=== PATIENT | male | born 1990 | race Caucasian/White ===

== ENCOUNTER 2020-04-13 15:00 | Outpatient (REF) | payer OTHER, SELFPAY | END 2020-04-13 15:01 | disposition home or self-care (01) | LOC: HO.LNP 15:00 | PROVIDERS: Visit Provider Internal Medicine | DX: Z20.828 Contact with and (suspected) exposure to other viral communicable diseases (principal); J02.9 Acute pharyngitis, unspecified | CPT/HCPCS: U0003 ==

== ENCOUNTER 2021-07-07 07:35 | Outpatient (REF) | payer BC, SELFPAY ==
[2021-07-07 07:49] LABS: MANUAL DIFF FLAG NO
[2021-07-07 08:12] LABS: Basophils Percent Auto 0.4 % (0-2); Eosinophils Absolute Auto 0.2 X10*3/uL (0.0-0.4); Eosinophils Percent Auto 1.6 % (0-4); Hematocrit 44.4 % (42.0-52.0); Hemoglobin 13.6 g/dl (14.0-18.0); Imm Gran Abs Auto 0.06 X10*3/uL (0.00-0.03); Imm Gran Pct Auto 0.6 % (0.0-0.4); Lymphocytes Absolute Auto 2.5 X10*3/uL (1.2-4.9); Lymphocytes Percent Auto 24.4 % (20-40); Mean Corpuscular HGB Conc 30.6 g/dl (31.0-36.0); Mean Corpuscular Hemoglobin 22.1 pg (27.0-33.0); Mean Corpuscular Volume 72.1 fL (80.0-98.0); Mean Platelet Volume 10.5 fL (9.4-12.4); Monocytes Absolute Auto 0.8 X10*3/uL (0.1-1.2); Monocytes Percent Auto 7.4 % (2-11); Neutrophils Absolute Auto 6.7 x10*3/uL (2.0-8.3); Neutrophils Percent Auto 65.6 % (45-73); Platelet Count 239 X10*3/uL (160-400); Red Blood Count 6.16 X10*6/uL (4.60-5.80); White Blood Count 10.1 X10*3/uL (4.8-10.8)
[2021-07-07 08:32] LABS: Alanine Aminotransferase 24 U/L (0-40); Albumin Level 4.3 g/dL (3.5-5.0); Alkaline Phosphatase 77 U/L (39-117); Anion Gap 10 (12-20); Aspartate Amino Transferase 18 U/L (5-37); Bilirubin Total 0.5 mg/dL (0.0-1.0); Blood Urea Nitrogen 17 mg/dL (9-16); Calcium 9.3 mg/dL (8.4-10.2); Carbon Dioxide 28 mmol/L (22-29); Chloride 108 mmol/L (96-108); Cholesterol 157 mg/dL; Estimated Glomerular Filt Rate > 60; Glucose Random 108 mg/dL (60-115); HDL Cholesterol 38 mg/dL; LDL Cholesterol Calculated 105 mg/dl; Potassium 4.2 mmol/L (3.3-5.1); Sodium 142 mmol/L (135-145); Total Protein 7.2 g/dL (6.5-8.0); Triglycerides 71 mg/dL
== END 2021-07-07 07:36 | disposition home or self-care (01) ==
LOC: HO.LAB 07:35
PROVIDERS: PCP Internal Medicine; Visit Provider Internal Medicine
DX: Z00.00 Encounter for general adult medical examination without abnormal findings (principal); Z13.220 Encounter for screening for lipoid disorders
CPT/HCPCS: 36415; 80053; 80061; 85025

== ENCOUNTER 2023-03-02 08:46 | Outpatient (AMB) | payer BC, SELFPAY ==
--- NOTE | 2023-03-02 10:43 | MHC.OFFWIV ---
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 Reports he had some sort of viral illness about 3 weeks ago, and has since recovered from most of the symptoms, however has persistent cough, sometimes dry, sometimes productive with yellow sputum. Denies shortness of breath, fever, chills. Denies history of asthma. [facility] Social History Patient Tobacco Use Status: Never used Tobacco Review of Systems Const All systems reviewed & are unremarkable except as noted in HPI and below Physical Exam Vital Signs: Last Vital Signs Temp 97.9 F 03/02/23 10:44 Pulse 78 03/02/23 10:44 BP 122/78 03/02/23 10:44 Pulse Ox 98 03/02/23 10:44 BMI result Body Mass Index 45.2 Const General: cooperative, healthy appearing, comfortable and no acute distress HEENT Head: Yes normal to inspection Mouth: Normal oral and palatal mucosa present and moist mucous membranes Throat: Yes posterior oropharynx normal Neck Neck: Yes no lymphadenopathy Resp Effort & Inspection: normal respiratory effort, able to speak in complete sentences and Actively coughing (Reports productive at times) Quality: dry Auscultation: clear to auscultation bilaterally Cardio Jugular venous distension: no JVD Palpation: normal PMI Rate: regular rate Rhythm: regular rhythm Skin General skin exam: no rashes or lesions noted Extrem General: Yes capillary refill normal and Yes no clubbing, cyanosis or edema Psych Appearance: grossly normal Mental Status: mental status grossly normal Speech and movement: Normal speech and movement present Assessment & Plan Assessment & Plan (1) Acute bronchitis: Code(s): J20.9 - Acute bronchitis, unspecified Qualifiers: Bronchitis organism: unspecified organism Qualified Code(s): J20.9 - Acute bronchitis, unspecified Plan: Persistent cough x3 weeks, with productive yellow sputum. Has since recovered from all other sick symptoms which started 3 weeks ago. Will start on azithromycin and a short course of prednisone. We reviewed indications, use, possible side effects of medications. If he does not improve with treatment, he should return to the clinic for further evaluation. He verbalizes understanding and agrees to plan. Medications: New prednisone 20 mg PO BID 3 days 6 tabs 0RF J20.9 - Acute bronchitis, unspecified azithromycin For 250 mg dose pack: take 500 mg today (day 1), then 250 mg for 4 days (days 2-5) PO 6 tabs 0RF J20.9 - Acute bronchitis, unspecified Coding Level of Care Code Est Pt Level 3 (25611) Diagnoses Acute bronchitis, unspecified organism J20.9 Bronchitis organism: unspecified organism
[2023-03-02 10:44] VITALS: BP 122/78; PULSE 78; TEMP 36.6; O2SAT 98; BMI 45.2
== END 2023-03-02 11:10 | disposition home or self-care (01) ==
PROVIDERS: PCP Internal Medicine; Visit Provider Nurse Practitioner Family
DX: J20.9 Acute bronchitis, unspecified (principal)
CPT/HCPCS: 99213

== ENCOUNTER 2023-03-10 10:25 | Outpatient (REF) | payer BC, SELFPAY ==
[2023-03-10 13:07] LABS: MANUAL DIFF FLAG NO
[2023-03-10 13:20] LABS: Basophils Absolute Auto 0.1 X10*3/uL (0.0-0.2); Basophils Percent Auto 0.4 % (0-2); Eosinophils Absolute Auto 0.2 X10*3/uL (0.0-0.4); Eosinophils Percent Auto 2.1 % (0-4); Hemoglobin 12.9 g/dl (14.0-18.0); Imm Gran Abs Auto 0.06 X10*3/uL (0.00-0.03); Imm Gran Pct Auto 0.5 % (0.0-0.4); Lymphocytes Absolute Auto 2.4 X10*3/uL (1.2-4.9); Lymphocytes Percent Auto 21.1 % (20-40); Mean Corpuscular HGB Conc 30.7 g/dl (31.0-36.0); Mean Corpuscular Hemoglobin 21.9 pg (27.0-33.0); Mean Corpuscular Volume 71.4 fL (80.0-98.0); Mean Platelet Volume 10.3 fL (9.4-12.4); Monocytes Absolute Auto 0.7 X10*3/uL (0.1-1.2); Monocytes Percent Auto 6.5 % (2-11); Neutrophils Absolute Auto 7.7 x10*3/uL (2.0-8.3); Neutrophils Percent Auto 69.4 % (45-73); Platelet Count 245 X10*3/uL (160-400); Red Blood Count 5.88 X10*6/uL (4.60-5.80); Red Cell Distribution Width 15.2 % (11.0-16.0); White Blood Count 11.2 X10*3/uL (4.8-10.8)
[2023-03-10 15:22] LABS: Alanine Aminotransferase 25 U/L (0-40); Albumin Level 4.1 g/dL (3.5-5.0); Alkaline Phosphatase 78 U/L (39-117); Anion Gap 11 (12-20); Aspartate Amino Transferase 20 U/L (5-37); Bilirubin Total 0.4 mg/dL (0.0-1.0); Blood Urea Nitrogen 13 mg/dL (9-16); Calcium 9.4 mg/dL (8.4-10.2); Carbon Dioxide 25 mmol/L (22-29); Chloride 108 mmol/L (96-108); Cholesterol 136 mg/dL (<200); Estimated Glomerular Filt Rate > 60; Glucose Random 108 mg/dL (60-115); Potassium 4.2 mmol/L (3.3-5.1); Sodium 140 mmol/L (135-145); Total Protein 7.3 g/dL (6.5-8.0)
== END 2023-03-10 10:26 | disposition home or self-care (01) ==
LOC: HO.10HDL 10:25
PROVIDERS: Visit Provider Internal Medicine
DX: Z00.00 Encounter for general adult medical examination without abnormal findings (principal); K21.9 Gastro-esophageal reflux disease without esophagitis; J30.1 Allergic rhinitis due to pollen; E66.01 Morbid (severe) obesity due to excess calories; Z20.2 Contact with and (suspected) exposure to infections with a predominantly sexual mode of transmission
CPT/HCPCS: 36415; 80053; 82465; 85025

== ENCOUNTER 2024-09-26 10:03 | Outpatient (AMB) | payer BC, SELFPAY ==
--- NOTE | 2024-09-26 10:08 | A.OFFPC_ITS ---
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 Allergies Seasonal Allergies Allergy (Verified 09/26/24 10:11) Watery eyes, runny nose Tobacco use date assessed: 09/26/24 Dental Screening Dental Screen Date: 09/26/24 Did you have a dental visit in the last 12 months?: Yes Did you have a dental problem in the last 6 months where you did not have access to dental care?: No Was dental information given to patient?: Patient has dentist HPI HPI Comments History of Present Illness Details This is a 34-year-old male with no significant past medical history presenting for a physical exam. This is his initial visit. He transferred from Dr. Garcia. Patient endorses years of lower back/SI joint problems. Around age 17 he was injured while playing basketball. Since that time once or twice per year he has an exacerbation of pain. He treats symptoms with ibuprofen, and he had an urgent care evaluation recently, and he was given muscle relaxants which helped. He endorses pain on the left or both sides of his back associated with spasming and swelling of the muscles and numbness in his anterior thighs. He has numbness in his thighs sometimes when he does not have exacerbations of pain. No loss of bowel or bladder control or weakness in his extremities. No history of back surgeries. Lying on his back worsens his symptoms. He reports seeing a back specialist in the past who recommended weight loss. He would like a referral to the dietitian. He has been trying to lose weight on his own, but he has not been successful. Endorses chronic snoring, nonrestorative sleep, sluggishness in morning and AM headaches sometimes and chronic daytime somnolence. His is complaining about his snoring. He goes to bed around 930pm and wakes around 630am. Drinks alcohol rarely. Sleeps on his sides. He has never had a sleep study. Denies family history of colon cancer. ROS: Constitutional: No fevers, chills, night sweats or unexplained weight loss. Eyes: No vision changes, blurry vision, double vision, eye pain, eye redness, eye discharge. ENT: No hearing loss, sneezing, congestion, runny nose or sore throat. Respiratory: No shortness of breath, cough or sputum production. Cardiovascular: No chest pain, chest pressure or chest discomfort. No palpit ations or pedal edema. Gastrointestinal: No anorexia, nausea, vomiting or diarrhea. No abdominal pain. Patients says rarely has a small amount of red blood on tissue paper when he wipes. This has not happened in the last few months. We discussed this was likely hemorrhoidal bleeding, but if symptoms return he should contact the office for evaluation. Genitourinary: No dysuria, hematuria, urinary frequency. No scrotal or testicular pain, swelling, masses, urethral discharge. Neurologic: No headache, dizziness, syncope, unilateral weakness, ataxia or seizures. Musculoskeletal: See HPI Hematologic/Lymphatics: No bleeding or bruising. No painful lymph nodes. Skin: No rash or itching. Endocrine: No cold or heat intolerance. No polyuria or polydipsia. Psychiatric: No depression or anxiety. No SI/HI. Physical exam: Constitutional: Alert, in no distress. Head: Normocephalic. Eyes: Pupils are equal, round and reactive to light. Extraocular muscles intact. Ear, Nose and Throat: Canals clear. TMs normal. Normal nasal mucosa. No nasal discharge. No oral lesions. Neck: Supple, Full range of motion. No lymphadenopathy. No palpable thyroid masses. Respiratory: Clear to auscultation. Cardiovascular: S1 S2 regular. No murmurs. Gastrointestinal: Abdomen soft, non-tender, non-distended. Normal bowel sounds. No palpable masses. Genitourinary: Declined. GALE: Declined. Neurologic: No focal neurological deficits. Symmetric patellar reflexes. Moves all extremities spontaneously. Sensation intact bilaterally. No footdrop. Lower extremity strength 5/5 bilaterally. Skin: No rashes or lesions. Musculoskeletal: No gross deformities. Normal range of motion. Back: Nontender to palpation, full range of motion, negative straight leg raises bilaterally. Extremities: Warm and well perfused. No clubbing, cyanosis or edema. Intact upper and lower extremity peripheral pulses. Psychiatric: Normal mood and affect [facility] Medical History (Updated 09/26/24 @ 16:53 by LALY Moctezuma) Routine physical examination Daytime somnolence Non-restorative sleep Snoring Low back pain Obesity Family History (Updated 09/26/24 @ 10:14 by Alva Rooney MA) Mother Hypertension Hyperlipemia Brother FHx: mental illness Social History (Updated 09/26/24 @ 10:15 by Alva Rooney MA) Housing: House Alcohol intake: current Comment: Socialy Patient Tobacco Use Status: Never used Tobacco e-Cigarette/Vaping Use: Never Used Second Hand Smoke Exposure: No service: No Current occupational status: employed 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 1. Little interest or pleasure in doing things: not at all 2. Feeling down, depressed, or hopeless: not at all 3. Trouble falling or staying asleep, or sleeping too much: several days 4. Feeling tired or having little energy: several days 5. Poor appetite or overeating: not at all 6. Feeling bad about yourself - or that you are a failure or have let yourself or your family down: not at all 7. Trouble concentrating on things, such as reading the newspaper or watching television: not at all 8. Moving or speaking so slowly that other people could have noticed. Or the opposite - being so fidgety or restless that you have been moving around a lot more than usual: not at all 9. Thoughts that you would be better off or of hurting yourself in some way: not at all Total score: 2 Depression Screening Interpretation: Negative Depression Screening Done: Yes 11752 - PHQ-9 Billing: Patient declined-do not bill Source: Developed by Drs. Anthony Chavez, Beverley Mcclellan, Gabriel López and colleagues, with an educational stephan from [employer]. Thrive Questionnaire Date Thrive assessed: 09/26/24 I am a: Patient What is your living situation today?: I have a steady place to live Within the past 12 months, did the food you bought not last and you didn't have the money to get more?: Never true Within the past 12 months, did you worry whether your food would run out before you got money to buy more?: Never true Do you have trouble paying for medicines?: No Do you have trouble getting transportation to medical appointments?: No Do you have trouble paying your heating and electricity bill?: No Do you have trouble taking care of your child, family member or friend?: No Do you have trouble with day-to-day activities such as bathing, preparing meals, shopping, managing finances, etc.?: No Are you currently unemployed and looking for a job?: No Are you interested in more education?: I choose not to answer this question Please select the resources that you would like help with: None Currently or been in a relationship where the following occur: No concerns reported THRIVE Score: 0 AUDIT C Alcohol Use Questionnaire (AUDIT-C) 1. How often do you have a drink containing alcohol?: Monthly or less 2. How many drinks containing alcohol do you have on a typical day when you are drinking?: 1 or 2 3. How often do you have six or more drinks on one occasion?: Never Total Score: 1 Score Reviewed/Action Taken: No EPIFANIO-7 AMB Questionnaire EPIFANIO-7 Date EPIFANIO - 7 assessed: 09/26/24 Feeling nervous, anxious, or on edge: 1 = Several days Not being able to stop or control worryin = Several days Worrying too much about different things: 1 = Several days Trouble relaxin = Not at all Being so restless that it is hard to sit still: 1 = Several days Becoming easily annoyed or irritable: 1 = Several days Feeling afraid as if something awful might happen: 0 = Not at all Total EPIFANIO-7 score (0-4 normal; 5-9 mild; 10-14 moderate; 15-21 severe): 5 Source: Developed by Drs. Anthony Chavez, Beverley Mcclellan, Gabriel López and colleagues, with an educational stephan from [employer]. EPIFANIO-7 Assessment Billing EPIFANIO-7 Assessment Tool: EPIFANIO-7 Assessment 30192 Physical exam (Primary Care) Vital Signs: Last Vital Signs Temp 97.9 F 09/26/24 10:16 Pulse 83 09/26/24 10:16 BP 118/68 09/26/24 10:16 Pulse Ox 98 09/26/24 10:16 Oxygen Delivery Method Room Air 09/26/24 10:16 BMI result Body Mass Index 46.4 Tobacco/Smoking Status: Tobacco use Status Tobacco use date assessed 09/26/24 09/26/24 10:18 Patient Tobacco Use Status Never used Tobacco 09/26/24 10:18 e-Cigarette/Vaping Use Never Used 09/26/24 10:18 PHQ-9: PHQ-9 Score PHQ-9: Total score 2 09/26/24 11:11 Depression Screening Interpretation: Negative Thrive Assessment: Date of Thrive Assessment Date Thrive assessed 09/26/24 09/26/24 10:18 Currently or been in a relationship where the following occur: No concerns reported Coding Level of Care Code Est Pt Prev Care 18-39y(97053) Diagnoses Low back pain M54.50 Snoring R06.83 Non-restorative sleep G47.8 Daytime somnolence R40.0 Routine physical examination Z00.00 Obesity E66.9 Additional Codes EPIFANIO-7 Assessment Billing - EPIFANIO-7 Assessment Tool: EPIFANIO-7 Assessment 98494 ([id number]) Assessment & Plan Assessment & Plan (1) Low back pain: Code(s): M54.50 - Low back pain, unspecified Category: Medical Plan: Patient will have x-rays of the lower back and SI joints. He will consider referral to physical therapy anew based on results. He is also going to work on weight loss. He can take ibuprofen as needed for flares, and I can refill muscle relaxant if he needs this, but he still has some of the medication at home. (2) Snoring: Code(s): R06.83 - Snoring Category: Medical Plan: Patient endorses snoring with non restorative sleep and daytime somnolence. BMI is 46.4 kg/m2. Proceed with sleep study for evaluation of obstructive sleep apnea. (3) Non-restorative sleep: Code(s): G47.8 - Other sleep disorders Category: Medical (4) Daytime somnolence: Code(s): R40.0 - Somnolence Category: Medical (5) Routine physical examination: Code(s): Z00.00 - Encounter for general adult medical examination without abnormal findings Category: Medical Plan: Patient is seen today for a routine physical. As part of this visit we reviewed the following issues, which are considered and essential part of preventative health in this age group: - Testicular cancer screening, which includes self exam teaching - Blood pressure screening annually - Cholesterol screening - Nutritional and exercise counseling - Counseling of injury prevention including fire prevention, smoke alarms and seat belt usage - Screening for depression - Prevention of and/or testing for infectious diseases agreeable to screening tests including HIV testing - Education about skin cancer - Recommendations about immunizations- declined Tdap - Recommendation of an eye exam - Screening for substance abuse (6) Obesity: Code(s): E66.9 - Obesity, unspecified Category: Medical Plan: We discussed lifestyle modifications including portion control and regular exercise and following a low carbohydrate, low sugar diet. Refer to dietitian. Plan Follow up in 3 months for re-evaluation of back pain, obesity and possible sleep apnea. Orders: Orders Lipid Panel Today E66.9 - Obesity, unspecified, E78.5 - Hyperlipidemia, unspecified Syphilis Screen Today E66.9 - Obesity, unspecified, Z20.2 - Contact with and (suspected) exposure to infections with a predominantly sexual mode of transmission XR lumbar spine 4V min Today M54.50 - Low back pain, unspecified XR sacroiliac joint 1-2V Today M54.50 - Low back pain, unspecified TSH reflex Free T4 Today E66.9 - Obesity, unspecified Comprehensive Met. Panel Today E66.9 - Obesity, unspecified Complete Blood Count no Diff Today E66.9 - Obesity, unspecified CT NG by PCR Today E66.9 - Obesity, unspecified, Z20.2 - Contact with and (suspected) exposure to infections with a predominantly sexual mode of transmission Hepatitis C Antibody Today E66.9 - Obesity, unspecified, Z20.2 - Contact with and (suspected) exposure to infections with a predominantly sexual mode of transmission HIV Ab/Ag Today E66.9 - Obesity, unspecified, Z20.2 - Contact with and (suspected) exposure to infections with a predominantly sexual mode of transmission RT home sleep study Today G47.8 - Other sleep disorders, M54.50 - Low back pain, unspecified, R06.83 - Snoring, R40.0 - Somnolence 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
[2024-09-26 10:16] VITALS: BP 118/68; PULSE 83; TEMP 36.6; O2SAT 98; BMI 46.4
--- OUTSIDE RECORDS SUMMARY | 2024-09-26 11:21 | XMS_ITS ---
Author Name [facility] Organization Unknown Encounters Encounter Type Encounter Reason Primary Diagnosis Location Date Ambulatory [facility] 10/30/2023 Care Team Organization Name Specialty Phone Email Start Date End [facility] 01/03/2024
== END 2024-09-26 10:59 | disposition home or self-care (01) ==
LOC: HO.HMCFM 10:03
PROVIDERS: PCP Internal Medicine; Visit Provider Physician Assistant Medical
DX: Z00.00 Encounter for general adult medical examination without abnormal findings (principal); R06.83 Snoring; Z68.42 Body mass index [BMI] 45.0-49.9, adult; E66.9 Obesity, unspecified; M54.50 Low back pain, unspecified; G47.8 Other sleep disorders; R40.0 Somnolence

== ENCOUNTER → 2024-09-26 10:03 | Outpatient (BNVA) | payer BC, SELFPAY | PROVIDERS: PCP Internal Medicine; Visit Provider Physician Assistant Medical | DX: Z00.00 Encounter for general adult medical examination without abnormal findings (principal); M54.50 Low back pain, unspecified; R06.83 Snoring; G47.8 Other sleep disorders; R40.0 Somnolence; E66.9 Obesity, unspecified; E78.5 Hyperlipidemia, unspecified; Z68.42 Body mass index [BMI] 45.0-49.9, adult | CPT/HCPCS: 96127 ==

== ENCOUNTER 2024-10-05 07:27 | Outpatient (REF) | payer BC, SELFPAY ==
--- NOTE | ~2024-10-05 | XR_ITS ---
CLINICAL HISTORY: M54.50 - Low back pain, unspecified Radiographs of the bilateral sacroiliac joints, 4 views Comparison: None Findings: No fracture or dislocation. The joint spaces are preserved without osteophytosis. Bone mineralization is normal. No soft tissue swelling. Impression: No acute findings. Normal sacroiliac joints. This document has been electronically signed by: Margie Abarca MD on 10/07/2024 16:10:46
--- NOTE | ~2024-10-05 | XR_ITS ---
CLINICAL HISTORY: M54.50 - Low back pain, unspecified Radiographs of the lumbar spine, 5 views Comparison: None Findings: There is normal alignment. No fracture. The vertebral body heights are preserved. There is mild intervertebral disc space narrowing at L1/L2 with moderate endplate osteophytosis. The other intervertebral disc spaces are preserved. There is trace endplate osteophytosis at L3/L4. Mild lower lumbar facet hypertrophy. The soft tissues are normal. Impression: No acute findings. Predominantly mild degenerative change. This document has been electronically signed by: Margie Abarca MD on 10/07/2024 16:10:46
--- OUTSIDE RECORDS SUMMARY | 2024-10-05 07:29 | XMS_ITS | Data Portability ---
Author Organization [place] - [place] [facility], [id number] [place] Address [address] [place] [address] Assessment No assessment recorded. Plan of Treatment Reminders Order Date Submit Date Provider Last Modified By Organization Details Last Modified Time Details Appointments None recorded. Lab CBC w/ auto diff 2022 023 [facility], [address], [address], [place], [address], 3 07:08:40 CMP, serum or plasma 2022 023 [facility], [address], [address], [place], [address], 3 07:08:39 lipid panel, serum 2022 023 [facility], [address], [address], [place], [address], 3 07:08:38 TSH, serum or plasma 2022 023 [facility], [address], [address], [place], [address], 3 07:08:41 HbA1c (hemoglobi n A1c), blood 2022 023 [facility], [address], [address], [place], [address], 3 07:08:42 Referral physical therapist referral - 32 nahum rene male with some pain and stiffnes s in the lower back. Please eval and treat. 2022 023 [facility], [address] [place], [address], 3 05:01:17 Procedures None recorded. Surgeries None recorded. Imaging None recorded. Medication Orders None recorded. Patient TargetsNo targets recorded. Patient InstructionsNo instructions recorded. Reason for Referral Physical Therapist Referral for Low back pain 32 nahum rene male with some pain and stiffnes s in the lower back. Please eval and treat. Referring Physician: Marcial Wilder, Internal Medicine, Encounter Date: 11/09/2022 Results Created Date Observation Date Name Description Value Unit Range Abnormal Flag Note LastModifiedBy Organization Detail LastModifiedTime 11/16/19 23 11/16/2022 LIPID PANEL WITH REFLE X TO DIREC T LDL cholesterol, total 168 mg/dL <200 normal Not Available [facility] [address], [place], [address], 11/16/2022 07:08:38 11/16/19 23 11/16/2022 LIPID PANEL WITH REFLE X TO DIREC T LDL HDL cholesterol 43 mg/dL > or = 40 normal Not Available [facility] [address], [place], [address], 11/16/2022 07:08:38 11/16/19 23 11/16/2022 LIPID PANEL WITH REFLE X TO DIREC T LDL triglyceride s 64 mg/dL <150 normal Not Available [facility] [address], [place], [address], 11/16/2022 07:08:38 11/16/19 23 11/16/2022 LIPID PANEL WITH REFLE X TO DIREC T LDL LDL-choleste rol 110 mg/dL _(chaz c) high Refer ence range : <100 Michel able range <100 mg/dL for prima ry preve ntion ; <70 mg/dL for patie nts with CHD or diabe tic patie nts with > or = 2 CHD risk facto rs. LDL-C is now calcu lated using the Heidi n-Hop kins argenisu gerson n, which is a valid ated novel metho d provi dominique kaitlyn r accur acy than the Fried mick equat ion in the estim ation of LDL-C . Heidi mcfarland SS et al. SELAM. 2013; 310(1 9): 2061- 2068 (http ://ed ucati on.Qu estDi ShopWells. com/f aq/FA Q164) Not Available [facility] [place] [facility] [address], [place], [address], 11/16/2022 07:08:38 11/16/19 23 11/16/2022 LIPID PANEL WITH REFLE X TO DIREC T LDL chol/HDLC ratio 3.9 (calc ) <5.0 normal Not Available [facility] [place] [facility] [address], [place], [address], 11/16/2022 07:08:38 11/16/19 23 11/16/2022 LIPID PANEL WITH REFLE X TO DIREC T LDL non HDL cholesterol 125 mg/dL _(chaz c) <130 normal For patie nts with diabe natanael plus 1 major ASCVD risk facto r, treat ing to a non-H DL-C goal of <100 mg/dL (LDL- C of <70 mg/dL ) is consi dered a thera peuti c optio n. Not Available [facility] [place] [facility] [address], [place], [address], 11/16/2022 07:08:38 11/16/19 23 11/16/2022 COMPR EHENS KATYA METAB OLIC PANEL glucose 91 mg/dL 65-99 normal Fasti ng refer ence inter yvonne Not Available [facility] [place] [facility] [address], [place], [address], 11/16/2022 07:08:39 11/16/19 23 11/16/2022 COMPR EHENS KATYA METAB OLIC PANEL urea nitrogen (BUN) 17 mg/dL 7-25 normal Not Available [facility] [place] [facility] [address], [place], [address], 11/16/2022 07:08:39 11/16/19 23 11/16/2022 COMPR EHENS KATYA METAB OLIC PANEL creatinine 0.83 mg/dL 0.60-1 .26 normal Not Available [facility] [address], [place], [address], 11/16/2022 07:08:39 11/16/19 23 11/16/2022 COMPR EHENS KTAYA METAB OLIC PANEL eGFR 118 mL/mi n/1.7 3m2 > or = 60 normal The eGFR is based on the CKD-E PI 2020 equat ion. To calcu late the new eGFR from a previ ous Creat inine or Cysta tin C resul t, go to https ://marium w.kid jaqueline.o vince/rach sesay s/ kdoqi /gfr% 5Fcal culat or Not Available [facility] [place] [facility] [address], [place], [address], 11/16/2022 07:08:39 11/16/19 23 11/16/2022 COMPR EHENS KATYA METAB OLIC PANEL BUN/creatini ne ratio NOT APPLIC ABLE (calc ) 6-22 Not Available [facility] [address], [place], [address], 11/16/2022 07:08:39 11/16/19 23 11/16/2022 COMPR EHENS KATYA METAB OLIC PANEL sodium 138 mmol/ L 135-14 6 normal Not Available [facility] [address], [place], [address], 11/16/2022 07:08:39 06/20/20 23 11/16/2022 COMPR EHENS KATYA METAB OLIC PANEL potassium 4.2 mmol/ L 3.5-5. 3 normal Not Available [facility] [address], [place], [address], 11/16/2022 07:08:39 11/16/19 23 11/16/2022 COMPR EHENS KATYA METAB OLIC PANEL chloride 103 mmol/ L 98-110 normal Not Available [facility] [address], [place], [address], 11/16/2022 07:08:39 11/16/19 23 11/16/2022 COMPR EHENS KATYA METAB OLIC PANEL carbon dioxide 29 mmol/ L 20-32 normal Not Available [facility] [address], [place], [address], 11/16/2022 07:08:39 11/16/19 23 11/16/2022 COMPR EHENS KATYA METAB OLIC PANEL calcium 9.2 mg/dL 8.6-10 .3 normal Not Available [facility] [address], [place], [address], 11/16/2022 07:08:39 11/16/19 23 11/16/2022 COMPR EHENS KATYA METAB OLIC PANEL protein, total 7.1 g/dL 6.1-8. 1 normal Not Available [facility] [address], [place], [address], 11/16/2022 07:08:39 11/16/19 23 11/16/2022 COMPR EHENS KATYA METAB OLIC PANEL albumin 4.4 g/dL 3.6-5. 1 normal Not Available [facility] [address], [place], [address], 11/16/2022 07:08:39 11/16/19 23 11/16/2022 COMPR EHENS KATYA METAB OLIC PANEL globulin 2.7 g/dL_ (calc ) 1.9-3. 7 normal Not Available [facility] [address], [place], [address], 11/16/2022 07:08:39 11/16/19 23 11/16/2022 COMPR EHENS KATYA METAB OLIC PANEL albumin/glob ulin ratio 1.6 (calc ) 1.0-2. 5 normal Not Available [facility] [address], [place], [address], 11/16/2022 07:08:39 11/16/19 23 11/16/2022 COMPR EHENS KATYA METAB OLIC PANEL bilirubin, total 0.5 mg/dL 0.2-1. 2 normal Not Available [facility] [address], [place], [address], 11/16/2022 07:08:39 11/16/19 23 11/16/2022 COMPR EHENS KATYA METAB OLIC PANEL alkaline phosphatase 76 U/L 36-130 normal Not Available [facility] [address], [place], [address], 11/16/2022 07:08:39 11/16/19 23 11/16/2022 COMPR EHENS KATYA METAB OLIC PANEL AST 16 U/L 10-40 normal Not Available [facility] [address], [place], [address], 11/16/2022 07:08:39 11/16/19 23 11/16/2022 COMPR EHENS KATYA METAB OLIC PANEL ALT 16 U/L 9-46 normal Not Available [facility] [address], [place], [address], 11/16/2022 07:08:39 11/16/19 23 11/16/2022 CBC (INCL UDES DIFF/ PLT) white blood cell count 10.7 thous and/u L 3.8-10 .8 normal Not Available [facility] [address], [place], [address], 11/16/2022 07:08:40 11/16/19 23 11/16/2022 CBC (INCL UDES DIFF/ PLT) red blood cell count 6.10 judy on/uL 4.20-5 .80 high Not Available [facility] [address], [place], [address], 11/16/2022 07:08:40 11/16/19 23 11/16/2022 CBC (INCL UDES DIFF/ PLT) hemoglobin 13.4 g/dL 13.2-1 7.1 normal Not Available [facility] [place] [facility] [address], [place], [address], 11/16/2022 07:08:40 11/16/19 23 11/16/2022 CBC (INCL UDES DIFF/ PLT) hematocrit 44.0 % 38.5-5 0.0 normal Not Available [facility] [address], [place], [address], 11/16/2022 07:08:40 11/16/19 23 11/16/2022 CBC (INCL UDES DIFF/ PLT) MCV 72.1 fL 80.0-1 00.0 low Not Available [facility] [address], [place], [address], 11/16/2022 07:08:40 11/16/19 23 11/16/2022 CBC (INCL UDES DIFF/ PLT) MCH 22.0 pg 27.0-3 3.0 low Not Available [facility] [address], [place], [address], 11/16/2022 07:08:40 11/16/19 23 11/16/2022 CBC (INCL UDES DIFF/ PLT) MCHC 30.5 g/dL 32.0-3 6.0 low Not Available [facility] [place] [facility] [address], [place], [address], 11/16/2022 07:08:40 11/16/19 23 11/16/2022 CBC (INCL UDES DIFF/ PLT) RDW 14.7 % 11.0-1 5.0 normal Not Available [facility] [place] [facility] [address], [place], [address], 11/16/2022 07:08:40 11/16/19 23 11/16/2022 CBC (INCL UDES DIFF/ PLT) platelet count 254 thous and/u L 140-40 0 normal Not Available [facility] [place] [facility] [address], [place], [address], 11/16/2022 07:08:40 11/16/19 23 11/16/2022 CBC (INCL UDES DIFF/ PLT) MPV 10.9 fL 7.5-12 .5 normal Not Available [facility] [place] [facility] [address], [place], [address], 11/16/2022 07:08:40 11/16/19 23 11/16/2022 CBC (INCL UDES DIFF/ PLT) absolute neutrophils 7330 cells /uL 1500-7 800 normal Not Available [facility] [place] [facility] [address], [place], [address], 11/16/2022 07:08:40 11/16/19 23 11/16/2022 CBC (INCL UDES DIFF/ PLT) absolute lymphocytes 2408 cells /uL 850-39 00 normal Not Available [facility] [address], [place], [address], 11/16/2022 07:08:40 11/16/19 23 11/16/2022 CBC (INCL UDES DIFF/ PLT) absolute monocytes 760 cells /uL 200-95 0 normal Not Available [facility] [place] [facility] [address], [place], [address], 11/16/2022 07:08:40 11/16/19 23 11/16/2022 CBC (INCL UDES DIFF/ PLT) absolute eosinophils 171 cells /uL 15-500 normal Not Available [facility] [place] [facility] [address], [place], [address], 11/16/2022 07:08:40 11/16/19 23 11/16/2022 CBC (INCL UDES DIFF/ PLT) absolute basophils 32 cells /uL 0-200 normal Not Available [facility] [place] [facility] [address], [place], [address], 11/16/2022 07:08:40 11/16/19 23 11/16/2022 CBC (INCL UDES DIFF/ PLT) neutrophils 68.5 % normal Not Available [facility] [place] [facility] [address], [place], [address], 11/16/2022 07:08:40 11/16/19 23 11/16/2022 CBC (INCL UDES DIFF/ PLT) lymphocytes 22.5 % normal Not Available [facility] [place] [facility] [address], [place], [address], 11/16/2022 07:08:40 11/16/19 23 11/16/2022 CBC (INCL UDES DIFF/ PLT) monocytes 7.1 % normal Not Available [facility] [place] [facility] [address], [place], [address], 11/16/2022 07:08:40 11/16/19 23 11/16/2022 CBC (INCL UDES DIFF/ PLT) eosinophils 1.6 % normal Not Available [facility] [place] [facility] [address], [place], [address], 11/16/2022 07:08:40 11/16/19 23 11/16/2022 CBC (INCL UDES DIFF/ PLT) basophils 0.3 % normal Not Available [facility] [place] [facility] [address], [place], [address], 11/16/2022 07:08:40 11/16/19 23 11/16/2022 TSH W/REF LATASHA TO FT4 TSH w/reflex to FT4 2.12 mIU/L 0.40-4 .50 normal Not Available [facility] [place] [facility] [address], [place], [address], 11/16/2022 07:08:41 11/16/19 23 11/16/2022 HEMOG LOBIN A1C hemoglobin A1C 5.6 %_of_ total _HGB <5.7 normal For the purpo se of jeannette crenshaw for the prese nce of diabe natanael: <5.7% Consi stent with the absen ce of diabe natanael 5.7-6 .4% Consi stent with incre ased risk for diabe natanael (pred iabet es) > or =6.5% Consi stent with diabe natanael This assay resul t is consi stent with a decre ased risk of diabe natanael. Curre ntly, no conse nsus exist s kallie fox use of hemog lobin A1c for diagn osis of diabe natanael in child yadi. Accor ding to Ameri can Diabe natanael Assoc iatio n (ADA) guide lines , hemog lobin A1c <7.0% repre sents optim al contr ol in non-p regna nt diabe tic patie nts. Diffe rent metri cs may apply to speci fic patie nt popul ation s. Stand ards of Medic al Care in Diabe natanael(A DA). Not Available [facility] [place] [facility] [address], [place], [address], 11/16/2022 07:08:42 Result Notes None recorded. Problems Name Problem SNOMED Code Status Onset Date Resolution Date Notes Provider Name and Address Organization Details Recorded Time Gastroesophage al reflux disease without esophagitis 050629052 Active 2022 Marcial Wilder MD [address] [place] [address], [address] [place] [address], [address], [place] [facility] 3 08:28:52 Lipomatosis 942236398 Active 2022 Marcial Wilder MD [address] [place] [address], [address], [place] [facility] 3 08:29:04 Low back pain 587074552 Active 2022 Marcial Wilder MD [address] [place] [address], [address], [place] [facility] 3 08:40:51 Acanthosis nigricans 427261094 Active 2022 Marcial Wilder MD [address] [place] [address], [address], [place] [facility] 3 08:48:59 Problem Notes None recorded. Medical Equipment None Reported. Medications Name Sig Start Date Stop Date Status Note LastModified by Organization Details LastModified Time azithromycin 250 mg tablet active Not Available Not Availabl e Not Available prednisone 20 mg tablet active Not Available Not Available No t Available Vitals Date Recorded Body weight Body mass index (BMI) Body height Heart rate Respiratory rate Oxygen saturation Oxygen saturation in Arterial blood by Pulse oximetry Systolic blood pressure Diastolic blood pressure Provider Name and Address Organization Details Last Updated DateTime 3 345038. 71 g 44.3 kg/m2 175.26 cm 83 /min 16 /min 98 % 98 % 120 mm[Hg] 80 mm[Hg] Marcial Wilder MD [address] [place] [address], [address], [place] [facility] 3 08:43:38 Social History Question Answer Notes LastModified by Organizat ion Details LastModified Time Tobacco Smoking Status Never Smoker Marcial Wilder MD [address] [place] [address], [address], [place], [address], [place] [facility] [place] 11/09/2022 08:29:28 What Is Your Level Of Alcohol Consumption? Occasional [email or web address] Information not available 11/09/2022 What Was The Date Of Your Most Recent Tobacco Screening? 11/09/2022 [email or web address] Information not available 11/09/2022 Do You Use Any Illicit Or Recreational Drugs? No [email or web address] Information not available 11/09/2022 Has Tobacco Cessation Counseling Been Provided? No [email or web address] Information not available 11/09/2022 Do You Or Have You Ever Used Any Other Forms Of Tobacco Or Nicotine? No [email or web address] Information not available 11/09/2022 How Many Days In The Past Year Have You Consumed 5 Or More Drinks? 0 [email or web address] Information no t available 11/09/2022 Sex: Unknown Functional Status None recorded. Mental Status None recorded. Family History Nothing Reported. Medical History Condition Response Past Medical History as per Problem List Y Past Encounters Encounter ID Performer Location Encounter Start Date Encounter Closed Date Diagnosis/Indication Diagnosis SNOMED-CT Code Diagnosis ICD10 Code Diagnosis Note [id number] Marcial Wilder MD [facility]_ IM_[address] [facility],[address] [facility] [address] [place] [address] 11/09/2022 08:20:24 11/09/2022 08:59:09 Adult health examination 746928893 Z00.00 Screenings can be found aboveLifes tyle discussedL abs orderedWil l monitor Gastroesop hageal reflux disease without esophagitis 605237097 K21.9 Will monitor Body mass index 40+ - severely obese 748281854 Z68.41 Lifestyle discussedW ill have pt see a Nutritioni stWill monitor Low back pain 637523671 M54.50 Will send to PT for the back pain Acanthosis nigricans 402 893805 L83 Will get labsLifest yle discussed Health Concerns Section Related Observation LastModified by Organization Detai ls LastModified Time None Recorded Concern Status LastModified by Organization Details LastModified Time None Recorded Advance Directives Directive None Recorded Payers Insurance Date Sequence Insurance Name Policy Number Policy Lynch Covered Member ID Lynch Member ID Guarantor Name 01/12/2024 1 [place] [id number] Basilio Torres [id number] Basilio Torres Notes Date Note Type Note Provider Name and Address Organization Details Recorded Time 11/09/2022 text/html 32 year old male in for a new patient annual exam. Depression screen: negativeVaccines: He thinks that he is up to date with his vaccinesSleep: he does snore. He wakes up feeling well rested but does feel sluggish during the day.Diet: Breakfast: egg, 2 slices cheese, agudelo, Lunch: rice with beans and meat, Dinner: rice with beans and meat. With his meals he drinks water or replacement ice tea.Exercise: he started to exercise about a month ago 3 times per week. 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 It is a stressful job per patient. He is concerned about his weight today.He looks improved and I will have to admit the patient. He reports that he has stiffness in the lower back in the am. He reports a previous injury of the back. No bowel or bladder issues. No numbness or tingling. No weakness or gait abnormality. Marcial Wilder MD [address] [place] [address], [address], [place], [address], [place] [facility] 11/09/2022 08:55:48
[2024-10-05 09:11] LABS: Hematocrit 42.2 % (42.0-52.0); Hemoglobin 12.7 g/dl (14.0-18.0); Mean Corpuscular HGB Conc 30.1 g/dl (31.0-36.0); Mean Corpuscular Hemoglobin 21.5 pg (27.0-33.0); Mean Corpuscular Volume 71.5 fL (80.0-98.0); Mean Platelet Volume 10.2 fL (9.4-12.4); Platelet Count 259 X10*3/uL (160-400); Red Cell Distribution Width 15.2 % (11.0-16.0); White Blood Count 9.4 X10*3/uL (4.8-10.8)
[2024-10-05 10:06] LABS: Alanine Aminotransferase 23 U/L (0-40); Albumin Level 4.1 g/dL (3.5-5.0); Alkaline Phosphatase 83 U/L (39-117); Anion Gap 13 (12-20); Aspartate Amino Transferase 25 U/L (5-37); Bilirubin Total 0.4 mg/dL (0.0-1.0); Blood Urea Nitrogen 17 mg/dL (9-16); Calcium 9.1 mg/dL (8.4-10.2); Carbon Dioxide 26 mmol/L (22-29); Chloride 107 mmol/L (96-108); Cholesterol 164 mg/dL (<200); Estimated Glomerular Filt Rate > 60; Glucose Random 95 mg/dL (60-115); HDL Cholesterol 35 mg/dL (>40); LDL Cholesterol Calculated 117 mg/dL (<100); Potassium 3.8 mmol/L (3.3-5.1); Sodium 142 mmol/L (135-145); TSH reflex Free T4 1.89 uIU/mL (0.32-4.0); Total Protein 7.2 g/dL (6.5-8.0); Triglycerides 60 mg/dL (<150)
[2024-10-05 10:10] LABS: Syphilis Screen Nonreactive (Nonreactive)
[2024-10-05 10:12] LABS: HIV AB/AG Nonreactive (Nonreactive); HIV Num 1 0.09 S/CO (0.00-0.99); ~HepC Num1 0.09 S/CO (0.00-0.79); ~Hepatitis C Antibody Nonreactive (Nonreactive)
== END 2024-10-05 07:28 | disposition home or self-care (01) ==
LOC: HO.XRAY 07:27
PROVIDERS: PCP Physician Assistant Medical; Visit Provider Physician Assistant Medical
DX: E66.9 Obesity, unspecified (principal); E78.5 Hyperlipidemia, unspecified; Z20.2 Contact with and (suspected) exposure to infections with a predominantly sexual mode of transmission; M54.50 Low back pain, unspecified
CPT/HCPCS: 36415; 72110; 72200; 80053; 80061; 84443; 85027; 86780; 86803; 87389

== ENCOUNTER → 2024-10-05 07:45 | Outpatient (BNV) | payer BC, SELFPAY | PROVIDERS: PCP Physician Assistant Medical; Visit Provider Radiology Diagnostic Radiology | DX: M54.50 Low back pain, unspecified (principal) | CPT/HCPCS: 72110; 72200 ==

== ENCOUNTER 2024-11-13 11:19 | Outpatient (AMB) | payer BC, SELFPAY ==
--- NOTE | 2024-11-13 11:37 | MHC.AMNUTRGE ---
VS Expanded 11/13/24 11:38 11/13/24 14:56 Height 5 ft 9 in Weight 316 lb 5.813 oz BMI 46.7 45.6 Intake Visit Reasons: Obesity, unspecified Allergies Seasonal Allergies Allergy (Verified 09/26/24 10:11) Watery eyes, runny nose Nutrition Presentation Details: Pt presents for MNT for obesity. 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 food frequency fruits: 0-1/d ve-1x/wk dairy: 1-2/ fish not including beverages: diet beverages, low sugar flavored water, coffee physical activity :adl etoh/smoking----- BS Monitoring Most Recent Diabetes Results: Cholesterol, (<200) 164 mg/dL 10/05/24 HDL Cholesterol, (>40) 35 mg/dL L 10/05/24 Triglycerides, (<150) 60 mg/dL 10/05/24 Creatinine, (0.5-1.4) 0.77 mg/dL 10/05/24 BUN, (9-16) 17 mg/dL H 10/05/24 Sodium, (135-145) 142 mmol/L 10/05/24 Potassium, (3.3-5.1) 3.8 mmol/L 10/05/24 Chloride, (96-108) 107 mmol/L 10/05/24 Carbon Dioxide, (22-29) 26 mmol/L 10/05/24 Calcium, (8.4-10.2) 9.1 mg/dL 10/05/24 AST, (5-37) 25 U/L 10/05/24 ALT, (0-40) 23 U/L 10/05/24 Total Protein, (6.5-8.0) 7.2 g/dL 10/05/24 Albumin, (3.5-5.0) 4.1 g/dL 10/05/24 BBG-Gvdusfu-Rx.Jeor Equation Height: 5 ft 9 in Weight: 309 lb Resting Metabolic Rate: 2323.45 Calculated Activity Level: Sedentary Calories Needed to Maintain Weight: 2788.14 Diagnosis Nutrition problem #1: excessive energy intake As related to (etiology) #1: diagnosis As evidenced by (sign/symptom) #1: high BMI (46.7 (11/20)) Monitoring/Goals Nutrition problem monitoring: level of knowledge/skill, total PRO intake, total CHO intake and weight Nutrition goal/outcome: wt loss 5lbs in 2 months [facility] Medical History (Updated 10/08/24 @ 16:24 by LALY Moctezuma) Abnormal CBC Routine physical examination Daytime somnolence Non-restorative sleep Snoring Low back pain Obesity Family History (Updated 09/26/24 @ 10:14 by Alva Rooney MA) Mother Hypertension Hyperlipemia Brother FHx: mental illness Social History (Updated 09/26/24 @ 10:15 by Alva Rooney MA) Housing: House Alcohol intake: current Comment: Socialy Patient Tobacco Use Status: Never used Tobacco e-Cigarette/Vaping Use: Never Used Second Hand Smoke Exposure: No service: No Current occupational status: employed 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 [employer] Current occupational exposures/hazards: No Cognitive needs: No Hearing needs: No Vision needs: Yes Assessment & Plan Assessment & Plan (1) Obesity: Code(s): E66.9 - Obesity, unspecified Category: Medical Plan: Wt: 144 Kg ( 11/20 ) Est kcal needs as per MSJ: 2800 (40% carb, 30% protein/fat) Est fluid needs as per 25-30 ml/d: 4100 Est prot per day as per 1 g/kg bw: 145 Recommend fiber intake : 8-10 g per day and gradually increase to 25-28 g per day for women and 35-38 g for men or as tolerated Recommend sodium intake per day : less than 2300 mg Educated patient on: ( R = reviewed V = verbalizes understanding N/R = needs review N/A = not applicable Food sources of carbohydrate, adequate serving sizes and its role in various health conditions: R Differences between complex carbohydrates a simple carbohydrates, role of fiber in diet: R Lean protein sources of foods: R Differences between types of fats and role in diet (mono on saturated fat fatty acids, saturated fatty acids, trans fats): R V N/R Food sources of sodium in salt and healthy modifications for heart health in kidney health: R V R/V Vitamins and minerals: R V N/R Healthy plate method concept: R Physical activity: Benefits a precaution: R V N/R Patient Instructions: Reduce on sugars (in beverages, sugar added to foods/beverages) follow healthy plate method at dinner (6 oz of lean protein and 1 1/2 cup of starches + non starchy vegetables), choosing home made meals 3 times a week see meal ideas Coding Level of Care Code Nutr Indiv Intake (19436) Diagnoses Obesity E66.9 Time Spent (min) 30
[2024-11-13 11:38] VITALS: BMI 46.7
--- OUTSIDE RECORDS SUMMARY | 2024-11-13 13:12 | XMS_ITS | Patient Health Record ---
Author Organization [facility] Emelyn daniela ZuletaTomas Address [address] [place] [address] Care Team Providers Care Continuity Person Name Role Phone Narayan Garcia MD Primary Care Provider Unavaila Jordon Brown Unavailable [phone] Reason For Referral No Information Medications Medication SIG (Take, Route, Fr equency, Duration) Notes Start Date End Date Status Physical Therapy . . . 2-3x/week for 3-4 weeks 02/2016 Active Social History Tobacco use other than smoking: Question Answer Notes Are you an other tobacco user? No Problems Problem Type SNOMED Code ICD Code Onset Dates Problem Status W/U Status Risk Notes Problem Achilles tendinitis, right leg (M76.61) Active confirmed Problem Achilles bursitis (147654364) Achilles tendinitis, left leg (M76.62) Active confirmed Plan Of Treatment No Information Insurance Providers Payer Name Payer Address Payer Phone Subscriber Number Group Number Insured Name Patient Relationship to Insured Coverage Start Date Coverage End Date [facility] [id number] [address] [address] [place] [address] [id number] Basilio Torres Self - patient is the insured
[2024-11-13 14:56] VITALS: BMI 45.6
== END 2024-11-13 12:16 | disposition home or self-care (01) ==
LOC: HO.ENCR 11:20
PROVIDERS: PCP Internal Medicine; Visit Provider Dietitian, Registered
DX: E66.9 Obesity, unspecified (principal)

== ENCOUNTER → 2024-11-13 11:19 | Outpatient (BNVA) | payer BC, SELFPAY | PROVIDERS: PCP Internal Medicine; Visit Provider Dietitian, Registered | DX: E66.9 Obesity, unspecified (principal); Z68.42 Body mass index [BMI] 45.0-49.9, adult; Z71.3 Dietary counseling and surveillance | CPT/HCPCS: 97802 ==

== ENCOUNTER → 2024-11-19 13:02 | Outpatient (BNV) | payer BC, SELFPAY | PROVIDERS: PCP Physician Assistant Medical; Referring Provider Physician Assistant Medical; Visit Provider Internal Medicine | DX: D50.9 Iron deficiency anemia, unspecified (principal) | CPT/HCPCS: 99204 ==

== ENCOUNTER → 2024-11-25 08:59 | Outpatient (REF) | payer BC, SELFPAY ==
--- OUTSIDE RECORDS SUMMARY | 2024-11-25 09:12 | XMS_ITS | Patient Health Record ---
Author Organization [facility] Emelyn daniela ZuletaTomas Address [address] [place] [address] Care Team Providers Care Research Compliance Specialist Name Role Phone Narayan Garcia MD Primary Care Provider Unavaila Jordon Brown Unavailable [phone] Reason For Referral No Information Medications Medication SIG (Take, Route, Fr equency, Duration) Notes Start Date End Date Status Physical Therapy . . . 2-3x/week; Durat ion: 3-4 weeks 01/06/2016 Active Social History Tobacco use other than smoking: Question Answer Notes Are you an other tobacco user? No Problems Problem Type SNOMED Code ICD Code Onset Dates Problem Status W/U Status Risk Notes Problem Achilles bursitis (251616644) Achilles tendinitis, right leg (M76.61) Active confirmed Problem Achilles bursitis (721335290) Achilles tendinitis, left leg (M76.62) Active confirmed Plan Of Treatment No Information Insurance Providers Payer Name Payer Address Payer Phone Subscriber Number Group Number Insured Name Patient Relationship to Insured Coverage Start Date Coverage End Date [facility] [id number] [address] [address] [place] [address] [id number] TorresBasilio Self - patient is the insured
== END ==
LOC: HO.SL 08:59
PROVIDERS: PCP Physician Assistant Medical; Visit Provider Physician Assistant Medical
DX: G47.30 Sleep apnea, unspecified (principal); R06.83 Snoring; G47.8 Other sleep disorders; R40.0 Somnolence; M54.50 Low back pain, unspecified
CPT/HCPCS: 95806

== ENCOUNTER → 2024-11-25 09:07 | Outpatient (BNV) | payer BC, SELFPAY | PROVIDERS: PCP Physician Assistant Medical; Visit Provider Psychiatry & Neurology Neurology | DX: G47.33 Obstructive sleep apnea (adult) (pediatric) (principal) | CPT/HCPCS: 95806 ==

== ENCOUNTER 2025-02-10 13:19 | Outpatient (AMB) | payer BC, SELFPAY ==
[2025-02-10 13:21] VITALS: BP 122/80; PULSE 92; O2SAT 97; BMI 46.7
--- NOTE | 2025-02-10 13:21 | A.OFFVIS_ITS ---
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 HST in chart(AHI-11, LISA-87%. APAP 5-20cm)Endorses chronic snoring, non restorative sleep, sluggishness in morning and AM headaches sometimes and chronic daytime somnolence. His is complaining about his snoring. He goes to bed around 930pm and wakes around 630am. Sleeps on his sides. Accompanied by: Self / Same As Patient Allergies Seasonal Allergies Allergy (Verified 02/10/25 13:26) Watery eyes, runny nose HPI Comments Details: 34 year old male is here for evaluation of sleep apnea referred to us by his PCP, Jerilyn Martinez. HST is c/w AHI of 11 and oxygen nadirs to 87%, start cpap at [id number]. He goes to bed at 10pm and wakes up at 6:30am, he snores loudly per his and denies gasping for air. He feels low energy and slow throughout the day and he is concerned. He wakes up with morning headaches 1-2x a month, migraines which can last for a day or two, he takes excederin extra strength 2 tablets. He has a throbbing pain intense about 7-8/10, is locally on the l/r side of the head. He denies grinding teeth and clenching of the jaw. He says his memory is poor he takes time to process information and recall takes a while. RLS symptoms, bilaterally shakes his legs, worse at daytime, denies pins, needles, burning pain. Mood is good. Diet is a challenge, he is working to improve eating habits. He walks daily 20-30 min 3-4x per week. He denies smoking and alcohol use. 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 [employer] Current occupational exposures/hazards: No Cognitive needs: No Hearing needs: No Vision needs: Yes Physical Exam Vital Signs: Last Vital Signs Pulse 92 02/10/25 13:21 BP 122/80 02/10/25 13:21 Pulse Ox 97 02/10/25 13:21 Oxygen Delivery Method Room Air 02/10/25 13:21 BMI result Body Mass Index 46.7 Const General: cooperative, comfortable and no acute distress Nutritional Appearance: obese Orientation/consciousness: patient oriented x3 HEENT Face and sinus: Yes face symmetric Teeth and gingiva: other (mallampti score is 4) Eyes Pupils: Equal, round and reactive pupils present Neck Neck: Yes full ROM Resp Effort & Inspection: normal respiratory effort and able to speak in complete sentences Neuro General: patient oriented x3 and moves all extremities Cranial nerves: Yes Equal, round and reactive pupils present, Yes Normal accommodation reflex present, Yes Normal facial strength present, Yes Ability to bilaterally rotate head present and Yes Ability to bilaterally elevate shoulders present Cognition (Neuro): normal cognition Gait exam (Neuro): Wide-based gait present Motor exam (neuro): 5/5 motor strength present throughout and Normal motor muscle tone present throughout Deep tendon reflexes (DTR's): Right triceps reflex intensity grade: 2+, Left triceps reflex intensity grade: 2+, Rt Biceps (C5, C6): 2+, Left biceps reflex intensity grade: 2+, Right brachioradialis reflex intensity grade: 2+, Left brachioradialis reflex intensity grade: 2+, Right patellar reflex intensity grade: 2+ and Left patellar reflex intensity grade: 2+ Psych Appearance: grossly normal Thought process: Normal thought process present Thought content: Normal thought content present Results Reviewed Results Reviewed: HST is c/w AHI of 11 and oxygen nadirs to 87%, start cpap at [id number]. Assessment & Plan Assessment & Plan (1) DOUG (obstructive sleep apnea): Code(s): G47.33 - Obstructive sleep apnea (adult) (pediatric) Category: Medical (2) Fatigue: Code(s): R53.83 - Other fatigue Category: Medical Qualifiers: Fatigue type: chronic, unspecified Qualified Code(s): R53.82 - Chronic fatigue, unspecified Plan Mild DOUG HST is + for mild doug AHI is 11 and O2 Nadirs to 87%. Weight management for dietary guidance to decrease BMI. RLS will monitor and f/u. Labs r/o deficiencies 3month f/u for compliance. Orders: Orders Methylmalonic Acid Today G47.9 - Sleep disorder, unspecified, R53.83 - Other fatigue Homocysteine Today G47.9 - Sleep disorder, unspecified, R53.83 - Other fatigue Vitamin B6 Today R53.83 - Other fatigue Vitamin D 25-OH Total Today R53.83 - Other fatigue Vitamin B1 Today R53.83 - Other fatigue Patient Instructions: Sleep Hygiene provided: set a scheduled bedtime and wake time to help regulate the circadian rhythm and balance the release of pituitary hormones. Sleep in a dark room, temperatures below 68 degrees, and no devices n bed. Limit caffeinated products 6 hours prior to bed, and limit fluids 2-4 hours prior to bed. Gentle night yoga, diffusing essential oils, and playing soft music can be relaxing. Coding Level of Care Code New Pt Level 4 (67201) Diagnoses DOUG (obstructive sleep apnea) G47.33 Chronic fatigue R53.82 Fatigue type: chronic, unspecified Sleep Questionnaire Difficulty falling asleep: No Difficulty staying asleep?: Yes Number of arousals: 2 Snoring: Yes Witnessed apneas: No Gasping arousals: No Nocturia: No GERD: No Vivid dreams: No Acting out dreams: No Abnormal behavior in sleep: No Abnormal movements in sleep: No Morning headaches: Yes Excessive daytime sleepiness: Yes Daytime naps: Yes (10min to 20min) Restless legs: Yes Hallucinations: No Sleep paralysis: No Drop attacks: No Sleep Study: No CPAP: No
--- OUTSIDE RECORDS SUMMARY | 2025-02-10 18:28 | XMS_ITS | Patient Health Record ---
Author Organization [facility] Emelyn daniela ZuletaTomas Address [address] [place] [address] Care Team Providers Care Store Merchandiser Name Role Phone Narayan Garcia MD Primary Care Provider Unavaila Jordon Brown Unavailable [phone] Reason For Referral No Information Medications Medication [...] W/U Status Risk Notes Problem Achilles bursitis ([id number]) Achilles tendinitis, right leg (M76.61) Active confirmed Problem Achilles bursitis (031592494) Achilles tendinitis, left leg (M76.62) Active confirmed Plan Of Treatment No Information Insurance Providers Payer Name Payer Address Payer Phone Subscriber Number Group Number Insured Name Patient Relationship to Insured Coverage Start Date Coverage End Date [facility] re-[id number] [address] [address] [place] [address] [id number] TorresBasilio Self - patient is the insured
--- OUTSIDE RECORDS SUMMARY | 2025-02-10 18:28 | XMS_ITS ---
Author Name [facility] Organization Unknown Encounters Encounter Type Encounter Reason Primary Diagnosis Location Date Ambulatory [facility] 10/30/2023 Care Team Organization Name Specialty Phone Email Start Date End [facility] 01/03/2024
== END 2025-02-10 13:59 | disposition home or self-care (01) ==
LOC: HO.HSMS 13:19
PROVIDERS: PCP Physician Assistant Medical; Visit Provider Physician Assistant Medical
DX: G47.33 Obstructive sleep apnea (adult) (pediatric) (principal); R53.82 Chronic fatigue, unspecified
CPT/HCPCS: 99204

== ENCOUNTER 2025-03-31 14:00 | Outpatient (AMB) | payer BC, SELFPAY ==
[2025-03-31 14:00] VITALS: BP 142/86; PULSE 80; TEMP 36.7; O2SAT 100; BMI 46.5
--- NOTE | 2025-03-31 14:00 | MHC.OFFWIV ---
Intake Vital Signs 03/31/25 14:00 Height 5 ft 9 in Weight 315 lb BMI 46.5 BP 142/86 H Blood Pressure Location Rt brachial Position Sitting Pulse 80 Pulse Source Pulse Oximeter Temp 98.1 F Temp Source Oral Pulse Oximetry (%) 100 Oxygen Delivery Method Room Air Intake Visit Reasons: ep on going cough for over a week Intake Note: Patient presents with c/o cough that will not go away x2 weeks. Patient says he was coming off of a cold previously. Patient Tobacco Use Status: Never used Tobacco Allergies Seasonal Allergies Allergy (Verified 03/31/25 14:03) Watery eyes, runny nose HPI HPI Comments History of Present Illness Details History - The patient is a 34-year-old male presenting with a persistent cough. - The cough began approximately two and a half weeks ago following a cold. - The cough is dry and intermittent, with no associated sore throat or nasal congestion. - The patient has a history of bronchitis over the past two years, treated with antibiotics and prednisone. - No history of asthma or smoking. - Blood pressure was noted to be slightly elevated during the visit. - He denies fever, chills, CP, SOB, abd pain, n/v/d, GILLESPIE, ear pain, sore throat, or sick contacts. - He denies smoking or vaping. Physical Exam General: Cooperative, healthy appearing, comfortable and no acute distress Orientation/consciousness: Patient oriented x3 Limitations: No limitations Head: Normal to inspection Ears: Hearing grossly normal bilaterally, external ears normal and TM's normal bilaterally Nose: Normal external nose present, normal nares present, and no nasal discharge present. Face and sinus: Sinuses nontender to palpation. Mouth: Normal oral and palatal mucosa present and moist mucous membranes noted. Throat: Tonsils normal. Uvula is midline. Posterior oropharynx with erythema and no exudates. Eyes: Appearance normal, both eyes and all related structures Neck: Normal visual inspection, full ROM. No lymphadenopathy noted. Respiratory: Lungs sound diminished, likely due to postnasal drip. Clear to auscultation bilaterally. Normal respiratory effort, able to speak in complete sentences. No respiratory distress, not tachypneic, no tripod positioning and no use of accessory muscles. Cardiovascular: Regular rate and rhythm. Normal S1 and S2. No m/r/g noted. Skin: No rashes or lesions noted Patient was informed and verbally consented to the use of an ambient scribe for clinic note documentation during this visit [facility] Medical History DOUG (obstructive sleep apnea) Abnormal CBC Routine physical examination Daytime somnolence Non-restorative sleep Snoring Low back pain Obesity Family History Mother Hypertension Hyperlipemia Brother FHx: mental illness Social History Household Members: Spouse and Children Housing: House Alcohol intake: current Comment: Socialy Patient Tobacco Use Status: Never used Tobacco e-Cigarette/Vaping Use: Never Used Second Hand Smoke Exposure: No service: No Current occupational status: employed Current occupation: [email or web address] Current occupational exposures/hazards: No Cognitive needs: No Hearing needs: No Vision needs: Yes Review of Systems Const All systems reviewed & are unremarkable except as noted in HPI and below Physical Exam Vital Signs: Last Vital Signs Temp 98.1 F 03/31/25 14:00 Pulse 80 03/31/25 14:00 BP 142/86 H 03/31/25 14:00 Pulse Ox 100 03/31/25 14:00 Oxygen Delivery Method Room Air 03/31/25 14:00 BMI result Body Mass Index 46.5 Assessment & Plan Assessment & Plan (1) Cough: Code(s): R05.9 - Cough, unspecified Qualifiers: Cough type: acute Qualified Code(s): R05.1 - Acute cough Plan Most likely bronchitis vs URI vs RAD vs asthma exacerbation plan - Prescribed antibiotics to prevent secondary bacterial infection. - Prescribed prednisone to reduce inflammation in the airways. - Provided cough medicine to alleviate symptoms. - Advised on the use of an inhaler to manage symptoms. - tylenol or motrin as needed - follow up with PCP Medications: New azithromycin For 250 mg dose pack: take 500 mg today (day 1), then 250 mg for 4 days (days 2-5) PO 6 tabs 0RF prednisone 40 mg (2 x 20 mg) PO DAILY 10 tabs 0RF 5 days albuterol sulfate 90 mcg/actuation 2 puffs inhalation Q6H PRN 8.5 grams 0RF shortness of breath or wheezing or cough benzonatate 200 mg PO BEDTIME PRN 10 caps 0RF cough Coding Level of Care Code Est Pt Level 3 (14604) Diagnoses Acute cough R05.1 Cough type: acute
== END 2025-03-31 14:46 | disposition home or self-care (01) ==
PROVIDERS: PCP Physician Assistant Medical; Visit Provider Physician Assistant Medical
DX: R05.1 Acute cough (principal)

== ENCOUNTER 2025-04-11 11:06 | Outpatient (AMB) | payer BC, SELFPAY ==
--- NOTE | 2025-04-11 11:08 | MHC.OFFWIV ---
Intake Vital Signs 04/11/25 11:09 04/11/25 11:12 Height 5 ft 9 in 5 ft 9 in Weight 315 lb BMI 46.5 BP 128/90 H Blood Pressure Location Lt brachial Position Sitting Pulse 95 Pulse Source Pulse Oximeter Temp 97.8 F Temp Source Oral Pulse Oximetry (%) 98 Oxygen Delivery Method Room Air Intake Visit Reasons: EP Persisten cough Intake Note: Patient presents c/o persistent cough x2-3 weeks. Patient Tobacco Use Status: Never used Tobacco Allergies Seasonal Allergies Allergy (Verified 04/11/25 11:10) Watery eyes, runny nose Do you need a note to return to daycare/school/sports/work: No HPI HPI Comments History of Present Illness Details This is a 34-year-old male presenting for evaluation of a chronic cough that has been ongoing since the end of February. Patient states the third week of February he had a cold and developed a mild cough shortly thereafter. Patient states his cough is worse during the day but he has now developed a burning sensation in his chest, burping and early satiety. Patient was initially seen at the medical walk-in on March 31 and prescribed azithromycin, prednisone, albuterol and Tessalon which were not helpful in resolving his cough. Patient denies having any otalgia, pharyngitis, fevers, chills, chest pain or shortness of breath. [facility] Medical History DOUG (obstructive sleep apnea) Abnormal CBC Routine physical examination Daytime somnolence Non-restorative sleep Snoring Low back pain Obesity Family History Mother Hypertension Hyperlipemia Brother FHx: mental illness Social History Household Members: Spouse and Children Housing: House Alcohol intake: current Comment: Socialy Patient Tobacco Use Status: Never used Tobacco e-Cigarette/Vaping Use: Never Used Second Hand Smoke Exposure: No service: No Current occupational status: employed Current occupation: [employer] Current occupational exposures/hazards: No Cognitive needs: No Hearing needs: No Vision needs: Yes Review of Systems Const All systems reviewed & are unremarkable except as noted in HPI and below Denies body aches, Denies chills and Denies fever(s) Eyes Reports no additional complaints ENT Reports no additional complaints, Reports Normal hearing present, Denies dysphagia, Denies dry mouth, Denies otalgia and Denies sore throat Card Reports no additional complaints, Denies chest pain and Denies dyspnea Resp Reports no additional complaints, Denies change in phlegm color, Denies chest congestion, Reports cough, Denies hemoptysis, Denies dyspnea and Denies wheezing GI Reports no additional complaints and Denies dysphagia Reports no additional complaints Musc Reports no additional complaints Skin/Breast Reports system reviewed and no additional complaints, except as documented Neuro Reports no additional complaints and Reports Normal hearing present Psych Reports no additional complaints Endo Reports no additional complaints Aller/Immun Denies wheezing Physical Exam Vital Signs: Last Vital Signs Temp 97.8 F 04/11/25 11:09 Pulse 95 04/11/25 11:09 BP 128/90 H 04/11/25 11:09 Pulse Ox 98 04/11/25 11:09 Oxygen Delivery Method Room Air 04/11/25 11:09 BMI result Body Mass Index 46.5 Const General: cooperative, healthy appearing, comfortable, no acute distress, well developed, alert, awake and Physically active; No lethargic Nutritional Appearance: overweight Orientation/consciousness: patient oriented x3 and No lethargic Limitations: no limitations Neck Lymphatic: no lymphadenopathy noted Resp Effort & Inspection: normal respiratory effort, able to speak in complete sentences, no audible wheezes, no cough, no nasal flaring and not tachypneic Auscultation: clear to auscultation bilaterally, no rhonchi and no wheezes Cardio Rate: regular rate Rhythm: regular rhythm GI Inspection: Yes normal to inspection and No distended Palpation (GI): Soft to palpation, nontender and no guarding Auscultation: normal bowel sounds Skin General skin exam: no rashes or lesions noted Neuro General: patient oriented x3 Cranial nerves: Yes Normal hearing present Psych Appearance: grossly normal Mental Status: mental status grossly normal Insight: Good insight present (Psych) Judgement: Good judgement present (Psych) Assessment & Plan Assessment & Plan (1) Chronic cough: Comment: Patient is evaluated. His most recent visit to the medical walk-in is reviewed. Patient's lungs are clear to auscultation bilaterally and he is not tachypneic or hypoxic. Imaging will be deferred at this time. Patient's evolving symptoms are most consistent with gastroesophageal reflux disease. Patient will be discharged home with a 2 week trial of omeprazole 40 mg. Code(s): R05.3 - Chronic cough Plan: Omeprazole 40 mg once daily x2 weeks. Follow up with PCP 10-14 days. Medications: New omeprazole 40 mg PO DAILY 14 caps 0RF Coding Level of Care Code Est Pt Level 3 (25343) Diagnoses Chronic cough R05.3 Time Spent (min) 20
[2025-04-11 11:09] VITALS: BP 128/90; PULSE 95; TEMP 36.6; O2SAT 98; BMI 46.5
--- OUTSIDE RECORDS SUMMARY | 2025-04-11 16:51 | XMS_ITS | Patient Health Record ---
Author Organization [facility] Emelyn daniela ZuletaSwansea Address [address] [facility] [place] [address] Care Team Providers Care Cardroom Manager Name Role Phone Narayan Garcia MD Primary Care Provider Unavaila Jordon Brown Unavailable [phone] Reason For Referral No Information Medications Medication [...] W/U Status Risk Notes Problem Achilles bursitis ([id number]) Achilles tendinitis, right leg (M76.61) Active confirmed Problem Achilles bursitis ([id number]) Achilles tendinitis, left leg (M76.62) Active confirmed Plan Of Treatment No Information Insurance Providers Payer Name Payer Address Payer Phone Subscriber Number Group Number Insured Name Patient Relationship to Insured Coverage Start Date Coverage End Date [facility] re-[id number] [address] [address] [place] [address] [id number] TorresBasilio Self - patient is the insured
--- OUTSIDE RECORDS SUMMARY | 2025-04-11 16:51 | XMS_ITS | Data Portability ---
Author Organization [place] - [place] [facility] mar[facility], [id number] [place] Address [address] [place] [address] Assessment No assessment recorded. Plan of Treatment Reminders Order Date Submit Date Provider Last Modified By Organization Details Last Modified Time Details Appointments None recorded. Lab CBC w/ auto diff 2022 023 [facility], [address], [address], [place], [address], 3 07:08:40 CMP, serum or plasma 2022 023 [facility], [address], [address], [place], [address], 3 07:08:39 lipid panel, serum 2022 023 [facility], [address], [address], [place], [address], 3 07:08:38 TSH, serum or plasma 2022 023 [facility], [address], [address], [place], [address], 3 07:08:41 HbA1c (hemoglobi n A1c), blood 2022 023 [facility], [address], [address], [place], [address], 3 07:08:42 Referral physical therapist referral - 32 nahum rene male with some pain and stiffnes s in the lower back. Please eval and treat. 2022 023 [facility], [address] [place], [address], 3 05:01:17 Procedures None recorded. Surgeries None [...] total 168 mg/dL <200 normal Not Available [facility] [address], [address], 11/16/2022 07:08:38 11/16/19 23 11/16/2022 LIPID PANEL WITH REFLE X TO DIREC T LDL HDL cholesterol 43 mg/dL > or = 40 normal Not Available [facility] [address], [address], 11/16/2022 07:08:38 11/16/19 23 11/16/2022 LIPID PANEL WITH REFLE X TO DIREC T LDL triglyceride s 64 mg/dL <150 normal Not Available [facility] [address], [address], 11/16/2022 07:08:38 11/16/19 23 11/16/2022 LIPID PANEL [...] calcu lated using the Heidi n-Hop kins calcu gerson n, which is a valid ated novel metho d provi dominique kaitlyn r accur acy than the Fried mick equat ion in the estim ation of LDL-C . Heidi mcfarland SS et al. SELAM. 2013; 310(1 9): 2061- 2068 (http ://ed ucati on.Qu estDi Voice2Insight. com/f aq/FA Q164) Not Available [facility] [place] [facility] [address], [place], [address], 11/16/2022 07:08:38 11/16/19 23 11/16/2022 LIPID PANEL WITH REFLE X TO DIREC T LDL chol/HDLC ratio 3.9 (calc ) <5.0 normal Not Available [facility] [place] [facility] [address], [place], [address], 11/16/2022 07:08:38 11/16/19 23 11/16/2022 LIPID PANEL WITH REFLE X TO DIREC T LDL non HDL cholesterol 125 mg/dL _(chaz c) <130 normal For patie nts with diabe natanael plus 1 major ASCVD risk facto r, treat ing to a non-H DL-C goal of <100 mg/dL (LDL- C of <70 mg/dL ) is consi dered a thera peuti c optio n. Not Available [facility] [place] [facility] [address], [place], [address], 11/16/2022 07:08:38 11/16/19 23 11/16/2022 COMPR EHENS KATYA METAB OLIC PANEL glucose 91 mg/dL 65-99 normal Fasti ng refer ence inter yvonne Not Available [facility] [place] [facility] [address], [place], [address], 11/16/2022 07:08:39 11/16/19 23 11/16/2022 COMPR EHENS KATYA METAB OLIC PANEL urea nitrogen (BUN) 17 mg/dL 7-25 normal Not Available [facility] [address], [place], [address], 11/16/2022 07:08:39 11/16/19 23 11/16/2022 COMPR EHENS KATYA METAB OLIC PANEL creatinine 0.83 mg/dL 0.60-1 .26 normal Not Available [facility] [address], [place], [address], 11/16/2022 07:08:39 11/16/19 23 11/16/2022 COMPR EHENS KATYA METAB OLIC PANEL eGFR 118 mL/mi n/1.7 3m2 > or = 60 normal The eGFR is based on the CKD-E PI 2020 octavia smalls. To calcu late the new eGFR from a previ ous Creat inine or Cysta tin C resul t, go to https ://marium w.greg parsons.o vince/rach sesay s/ kdoqi /gfr% 5Fcal culat or Not Available [facility] [address], [place], [address], 11/16/2022 07:08:39 11/16/19 23 11/16/2022 COMPR EHENS KATYA METAB OLIC PANEL BUN/creatini ne ratio NOT APPLIC ABLE (calc ) 6-22 Not Available [facility] [address], [place], [address], 11/16/2022 07:08:39 11/16/19 23 11/16/2022 COMPR EHENS KATYA METAB OLIC PANEL sodium 138 mmol/ L 135-14 6 normal Not Available [facility] [address], [place], [address], 11/16/2022 07:08:39 11/16/19 23 11/16/2022 COMPR EHENS KATYA METAB OLIC PANEL potassium 4.2 mmol/ L 3.5-5. 3 normal Not Available [facility] [address], [place], [address], 11/16/2022 07:08:39 11/16/19 23 11/16/2022 COMPR EHENS KATYA METAB OLIC PANEL chloride 103 mmol/ L 98-110 normal Not Available [facility] [address], [place], [address], 11/16/2022 07:08:39 11/16/19 23 11/16/2022 COMPR EHENS KATYA METAB OLIC PANEL carbon dioxide 29 mmol/ L 20-32 normal Not Available [facility] [address], [place], [address], 11/16/2022 07:08:39 11/16/19 23 11/16/2022 COMPR EHENS KATYA METAB OLIC PANEL calcium 9.2 mg/dL 8.6-10 .3 normal Not Available [facility] [address], [place], [address], 11/16/2022 07:08:39 11/16/19 23 11/16/2022 COMPR EHENS KATYA METAB OLIC PANEL protein, total 7.1 g/dL 6.1-8. 1 normal Not Available [facility] [address], [place], [address], 11/16/2022 07:08:39 11/16/19 23 11/16/2022 COMPR EHENS KATYA METAB OLIC PANEL albumin 4.4 g/dL 3.6-5. 1 normal Not Available [facility] [address], [place], [address], 11/16/2022 07:08:39 11/16/19 23 11/16/2022 COMPR EHENS KATYA METAB OLIC PANEL globulin 2.7 g/dL_ (calc ) 1.9-3. 7 normal Not Available [facility] [address], [place], [address], 11/16/2022 07:08:39 11/16/19 23 11/16/2022 COMPR EHENS KATYA METAB OLIC PANEL albumin/glob ulin ratio 1.6 (calc ) 1.0-2. 5 normal Not Available [facility] [address], [place], [address], 11/16/2022 07:08:39 11/16/19 23 11/16/2022 COMPR EHENS KATYA METAB OLIC PANEL bilirubin, total 0.5 mg/dL 0.2-1. 2 normal Not Available [facility] [address], [place], [address], 11/16/2022 07:08:39 11/16/19 23 11/16/2022 COMPR EHENS KATYA METAB OLIC PANEL alkaline phosphatase 76 U/L 36-130 normal Not Available [facility] [address], [place], [address], 11/16/2022 07:08:39 11/16/19 23 11/16/2022 COMPR EHENS KATYA METAB OLIC PANEL AST 16 U/L 10-40 normal Not Available [facility] [address], [place], [address], 11/16/2022 07:08:39 11/16/19 23 11/16/2022 COMPR EHENS KATYA METAB OLIC PANEL ALT 16 U/L 9-46 normal Not Available [facility] [address], [place], [address], 11/16/2022 07:08:39 11/16/19 23 11/16/2022 CBC (INCL UDES DIFF/ PLT) white blood cell count 10.7 thous and/u L 3.8-10 .8 normal Not Available [facility] [place] [facility] [address], [place], [address], 11/16/2022 07:08:40 11/16/19 23 11/16/2022 CBC (INCL UDES DIFF/ PLT) red blood cell count 6.10 judy on/uL 4.20-5 .80 high Not Available [facility] [place] [facility] [address], [place], [address], 11/16/2022 07:08:40 11/16/19 23 11/16/2022 CBC (INCL UDES DIFF/ PLT) hemoglobin 13.4 g/dL 13.2-1 7.1 normal Not Available [facility] [place] [facility] [address], [place], [address], 11/16/2022 07:08:40 11/16/19 23 11/16/2022 CBC (INCL UDES DIFF/ PLT) hematocrit 44.0 % 38.5-5 0.0 normal Not Available [facility] [place] [facility] [address], [place], [address], 11/16/2022 07:08:40 11/16/19 23 11/16/2022 CBC (INCL UDES DIFF/ PLT) MCV 72.1 fL 80.0-1 00.0 low Not Available [facility] [place] [facility] [address], [place], [address], 11/16/2022 07:08:40 11/16/19 23 11/16/2022 CBC (INCL UDES DIFF/ PLT) MCH 22.0 pg 27.0-3 3.0 low Not Available [facility] [place] [facility] [address], [place], [address], 11/16/2022 07:08:40 06/20/20 23 11/16/2022 CBC (INCL UDES DIFF/ PLT) MCHC 30.5 g/dL 32.0-3 6.0 low Not Available [facility] [place] [facility] [address], [place], [address], 11/16/2022 07:08:40 11/16/19 23 11/16/2022 CBC (INCL UDES DIFF/ PLT) RDW 14.7 % 11.0-1 5.0 normal Not Available [facility] [place] [facility] [address], [place], [address], 11/16/2022 07:08:40 11/16/19 23 11/16/2022 CBC (INCL UDES DIFF/ PLT) platelet count 254 thous and/u L 140-40 0 normal Not Available [facility] [place] [facility] [address], [place], [address], 11/16/2022 07:08:40 11/16/19 23 11/16/2022 CBC (INCL UDES DIFF/ PLT) MPV 10.9 fL 7.5-12 .5 normal Not Available [facility] [place] [facility] [address], [place], [address], 11/16/2022 07:08:40 11/16/19 23 11/16/2022 CBC (INCL UDES DIFF/ PLT) absolute neutrophils 7330 cells /uL 1500-7 800 normal Not Available [facility] [place] [facility] [address], [place], [address], 11/16/2022 07:08:40 11/16/19 23 11/16/2022 CBC (INCL UDES DIFF/ PLT) absolute lymphocytes 2408 cells /uL 850-39 00 normal Not Available [facility] [place] [facility] [address], [place], [address], 11/16/2022 07:08:40 11/16/19 23 11/16/2022 CBC (INCL UDES DIFF/ PLT) absolute monocytes 760 cells /uL 200-95 0 normal Not Available [facility] [place] [facility] [address], [place], [address], 11/16/2022 07:08:40 11/16/19 23 11/16/2022 CBC (INCL UDES DIFF/ PLT) absolute eosinophils 171 cells /uL 15-500 normal Not Available [facility] [place] [facility] [address], [place], [address], 11/16/2022 07:08:40 11/16/19 23 11/16/2022 CBC (INCL UDES DIFF/ PLT) absolute basophils 32 cells /uL 0-200 normal Not Available [facility] [place] [facility] [address], [place], [address], 11/16/2022 07:08:40 11/16/19 23 11/16/2022 CBC (INCL UDES DIFF/ PLT) neutrophils 68.5 % normal Not Available [facility] [place] [facility] [address], [place], [address], 11/16/2022 07:08:40 11/16/19 23 11/16/2022 CBC (INCL UDES DIFF/ PLT) lymphocytes 22.5 % normal Not Available [facility] [place] [facility] [address], [place], [address], 11/16/2022 07:08:40 11/16/19 23 11/16/2022 CBC (INCL UDES DIFF/ PLT) monocytes 7.1 % normal Not Available [facility] [place] [facility] [address], [place], [address], 11/16/2022 07:08:40 11/16/19 23 11/16/2022 CBC (INCL UDES DIFF/ PLT) eosinophils 1.6 % normal Not Available [facility] [place] [facility] [address], [place], [address], 11/16/2022 07:08:40 11/16/19 23 11/16/2022 CBC (INCL UDES DIFF/ PLT) basophils 0.3 % normal Not Available [facility] [place] [facility] [address], [place], [address], 11/16/2022 07:08:40 11/16/19 23 11/16/2022 TSH W/REF LATASHA TO FT4 TSH w/reflex to FT4 2.12 mIU/L 0.40-4 .50 normal Not Available [facility] [place] [facility] [address], [place], [address], 11/16/2022 07:08:41 11/16/19 23 11/16/2022 HEMOG LOBIN [...] Diabe natanael(A DA). Not Available [facility] [place] [facility] [address], [place], [address], 11/16/2022 07:08:42 Result Notes None recorded. Problems Name Problem SNOMED Code Status Onset Date Resolution Date Notes Provider Name and Address Organization Details Recorded Time Gastroesophage al reflux disease without esophagitis 641374245 Active 2022 Marcial Wilder MD [address] [place] [address], [address] [place] [address], [phone], [facility] 3 08:28:52 Lipomatosis 968080867 Active 2022 Marcial Wilder MD [address] [place] [address], [address], [place] [facility] 3 08:29:04 Low back pain 042644073 Active 2022 Marcial Wilder MD [address] [place] [address], [phone], [facility] 3 08:40:51 Acanthosis nigricans 578549666 Active 2022 Marcial Wilder MD [address] [place] [address], [phone], [facility] 3 08:48:59 Problem Notes None recorded. Medical [...] in Arterial blood by Pulse oximetry Systolic And Diastolic Provider Name and Address Organization Details Last Updated DateTime 3 975730. 71 g 44.3 kg/m2 175.26 cm 83 /min 16 /min 98 % 98 % 120/80 mm[Hg] Marcial Wilder MD [address] [place] [address], [address], [place] [facility] 3 08:43:38 Social History Question Answer Notes LastModified by Organizat ion Details LastModified Time Tobacco Smoking Status Never Smoker Marcial Wilder MD [address] [place] [address], [phone], [place] [facility] [place] 11/09/2022 08:29:28 What Was The Date Of Your Most Recent Tobacco Screening? 11/09/2022 [email or web address] Information not available 11/09/2022 Has Tobacco Cessation Counseling Been Provided? No [email or web address] Information not available 11/09/2022 How Many Days In The Past Year Have You Consumed 5 Or More Drinks? 0 [email or web address] Information not available 11/09/2022 Sex: Unknown Functional Status Question Answer Note LastModified by Organizat ion Details LastModified Time Do you use any illicit or recreational drugs? No [email or web address] Information not available 11/09/2022 Do you or have you ever used any other forms of tobacco or nicotine? No [email or web address] Information not available 11/09/2022 What is your level of alcohol consumption? Occasional [email or web address] Information not available 11/09/2022 Mental Status None recorded. Family History Nothing Reported. Medical History Condition Response Past Medical History as per Problem List Y Past Encounters Encounter ID Performer Location Encounter Start Date Encounter Closed Date Diagnosis/Indication Diagnosis SNOMED-CT Code Diagnosis ICD10 Code Diagnosis IMO Codes Diagnosis Note [id number] Marcial Wilder MD [id number]_ [email or web address]_[address] [address] [place] [address] 11/09/2022 08:20:24 11/09/2022 08:59:09 Adult health examination 259153923 Z00.00 Screenings can be found aboveLifes tyle discussedL abs orderedWil l monitor Gastroesop hageal reflux disease without esophagitis 977193858 K21.9 Will monitor Body mass index 40+ - severely obese 359460323 Z68.41 Lifestyle discussedW ill have pt see a Nutritioni stWill monitor Low back pain 592957519 M54.50 Will send to PT for the back pain Acanthosis nigricans 402 078941 L83 Will get labsLifest yle discussed Health Concerns Section Related Observation LastModified by Organization Detai ls LastModified Time None Recorded Concern Status LastModified by Organization Details LastModified Time None Recorded Advance Directives Directive None Recorded Payers Insurance Date Sequence Insurance Name Policy Number Policy Lynch Covered Member ID Lynch Member ID Guarantor Name 01/12/2024 1 [id number] [id number] Basilio Torres [id number] Basilio Torres Notes Date Note Type [...] 3 times per week. He has a head athletic trainer 1 time per week. 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 Marcial Wilder MD [address] [place] [address], [address], [place], [address], [place] [facility] 11/09/2022 08:55:48
== END 2025-04-11 11:37 | disposition home or self-care (01) ==
PROVIDERS: PCP Physician Assistant Medical; Visit Provider Physician Assistant
DX: R05.3 Chronic cough (principal)